=== PATIENT | female | born 1995 | race Caucasian/White ===

== ENCOUNTER 2024-10-06 08:22 | Emergency (ER) | payer MEDICAID ==
[~2024-10-06] VITALS: Ht 154.9 cm; Wt 82.0 kg
[2024-10-06 08:31] VITALS: BP 130/72; PULSE 74; RESP 16; TEMP 36.6; O2SAT 99
[2024-10-06 08:33] VITALS: O2SAT 98
[2024-10-06 09:07] LABS: BASOPHILS % 0.5 % (0.0-2.0); EOSINOPHILS % 1.4 % (0.0-5.0); HEMATOCRIT. 38.4 % (36.0-48.0); HEMOGLOBIN. 12.9 g/dL (12.0-16.0); LYMPHOCYTES % 30.1 % (20.0-50.0); MEAN CORPUSCULAR HEMOGLOBIN 30.2 pg (28.0-32.0); MEAN CORPUSCULAR HGB CONC 33.6 g/dL (31.0-37.0); MEAN CORPUSCULAR VOLUME 89.7 fL (81.0-99.0); MEAN PLATELET VOLUME 7.7 fl (7.4-10.4); MONOCYTES % 4.8 % (2.0-8.0); NEUTROPHILS % 63.2 % (40.0-76.0); PLATELET 357 x1000/uL (130-400); RED BLOOD CELL COUNT 4.28 mill/uL (4.2-5.4); WHITE BLOOD COUNT 6.3 x1000/uL (4.5-11.0)
[2024-10-06 09:15] LABS: CHLORIDE 103 mEq/L (98-107); POTASSIUM 3.9 mEq/L (3.5-5.1); SODIUM 139 mEq/L (136-145)
[2024-10-06 09:16] LABS: CALCIUM 9.3 mg/dL (8.7-10.4); CARBON DIOXIDE 27 mEq/L (21-32); HCG SCREEN NEGATIVE
[2024-10-06 09:21] LABS: CREATININE 0.5 mg/dL (0.6-1.0); GLUCOSE 110 mg/dL (70-105); UREA NITROGEN BLOOD 11 mg/dL (9-23)
[2024-10-06 09:23] LABS: ALANINE AMINOTRANSFERASE 19 IU/L (10-49); ALBUMIN 4.5 g/dL (3.2-4.8); ASPARTATE AMINOTRANSFERASE 15 IU/L (<34); BILIRUBIN TOTAL 0.4 mg/dL (0.1-1.0); PROTEIN TOTAL 7.6 g/dL (6.0-8.3)
[2024-10-06] MEDS: MAGNESIUM/ALUMINUM HYDROXIDE/SIMETHICONE 30ML UDC PO ONE (09:24)
[2024-10-06] MEDS: FAMOTIDINE 20MG TABLET PO ONE (09:24)
[2024-10-06] MEDS: ONDANSETRON 4MG ODT PO ONE (09:24)
[2024-10-06 09:31] LABS: BILIRUBIN DIRECT < 0.1 mg/dL (<=3.0)
[2024-10-06] MEDS ORDERED: POLY17PO3 MT (09:41)
[2024-10-06] MEDS ORDERED: FAMO-135 MT (09:41)
== END 2024-10-06 09:54 | disposition home or self-care (01) ==
LOC: ER 08:22
DX: K29.70 Gastritis, unspecified, without bleeding (principal)
CPT/HCPCS: 99284; 80076; 80048; 84703; 83690; 85025; 36415; Q0162